=== PATIENT | male | born 1985 | race Caucasian/White ===

== ENCOUNTER 2019-03-16 10:13 | Emergency (ER) | payer SELFPAY ==
--- NOTE | 2019-03-16 10:24 | UC ---
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 he states he is not used to hard labor, and states that after a few hours he started to feel dizzy, tightness in his chest with deep breathing - felt like it was difficult to take a deep breath, and nausea - vomited x 1. felt off the rest of the day. drank 3-4 gatorade yesterday and had some chicken noodle soup, but tightness in chest has remained. pt also has sensation of swelling in his neck, though able to swallow easily and talk easily. no pain at rest, tightness is mostly with activity. pt has possible hx of asthma as a child. possibly has some environmental allergies Yesterday - see above did not urinate until he got home last evening. Urine today clear, no kidney pain no palpitations. No pain in chest now No sob No GI issues now, but did vomit x 1 yesterday. No rash. No vis / aud issues. No h/a now. + sore throat Did have mononucleosis as a child. s/p t/a remote - History of Current Complaint Stated Complaint: CHEST TIGHTNESS, AND NECK TIGHTNESS Time Seen by Provider: 03/16/19 10:23 Hx Obtained From: Patient, Family/Securities Supervisor - Allergy/Home Medications Allergies/Adverse Reactions: Allergies Allergy/AdvReac Type Severity Reaction Status Date / Time No Known Allergies Allergy Verified 03/16/19 10:33 PMH/Surg Hx/FS Hx/Imm Hx Previously Healthy: Yes - Surgical History Surgical History: Yes Surgery Procedure, Year, and Place: shoulder surgery x2. tonsils adenoids wisdom teeth - Social History Alcohol Use: Occasionally Substance Use Type: None Smoking Status (MU): Current Some Day Smoker Type: Cigarettes Amount Used/How Often: occas - 1-2 week Review of Systems All Other Systems Reviewed And Are Negative: Yes Constitutional: Positive: Fatigue - see hpi Skin: Positive: Other - see hpi Eyes: Positive: Other - see hpi ENT: Positive: Other - see hpi Respiratory: Positive: Other - see hpi Cardiovascular: Positive: Other - see hpi Gastrointestinal: Positive: Other - see hpi Genitourinary: Positive: Other - see hpi Motor: Positive: Other - see hpi Neurovascular: Positive: Other - see hpi Musculoskeletal: Positive: Other: - see hpi Neurological: Positive: Other - see hpi Is Patient Immunocompromised?: No Physical Exam Triage Information Reviewed: Yes Appearance: Well-Nourished - sitting up / laying back on exam stretcher NAD. Conversing easily. Looks tired, but NAD. Vital Signs Reviewed: Yes Eye Exam: Normal - grossly normal ENT: Positive: Pharyngeal erythema - post pharynx redness, neck supple. no meningismus Neck: Positive: Supple Respiratory Exam: Normal Respiratory: Positive: Chest non-tender, Lungs clear, Normal breath sounds, No respiratory distress, No accessory muscle use Cardiovascular Exam: Other - + syst murmur mild Cardiovascular: Positive: RRR, Pulses Normal, Brisk Capillary Refill Abdominal Exam: Normal Abdomen Description: Positive: Nontender Musculoskeletal Exam: Normal - gait steady, moves x 4 ext's Neurological Exam: Normal Psychological Exam: Normal Skin Exam: Normal Course/Dx - Course Course Of Treatment: EKG -SR at 63 bpm. PA 176 QTC 445. Likely early repol. Considered asa, but no current pain, and concern renal issues / volume depl. asa can be administered in ED if necessary. Will go immediately to ED D/w pt and girlfriend. Highly recommend ED evaluation / management. They carefully considered this and will go to ED. Decline EMS. Called ED, d/w JUDITH Meyer 10:55am Questions as posed answered to the best of my ability. - Diagnoses Provider Diagnosis: Chest pain, Heat exhaustion, Sore throat Discharge - Sign-Out/Discharge Documenting (check all that apply): Patient Departure All imaging exams completed and their final reports reviewed: No Studies - Discharge Plan Condition: Guarded Disposition: HOME-RECOMMEND TO ED Patient Education Materials: Chest Pain (ED) Referrals: No Primary Care Phys,NOPCP [Primary Care Provider] - Additional Instructions: Please go directly to the Emergency Department. Stop and call 911 en route, if any problems. - Billing Disposition and Condition Condition: GUARDED Disposition: Home-Recommend to ED
[2019-03-16 11:10] VITALS: BP 127/83
== END 2019-03-16 11:06 | disposition home health service (06) ==
LOC: UCEAST 10:13
DX: R07.9 Chest pain, unspecified (principal); J02.9 Acute pharyngitis, unspecified; T67.5XXA Heat exhaustion, unspecified, initial encounter; X30.XXXA Exposure to excessive natural heat, initial encounter; Y93.89 Activity, other specified; Y92.89 Other specified places as the place of occurrence of the external cause; Y99.0 Civilian activity done for income or pay; F17.210 Nicotine dependence, cigarettes, uncomplicated
CPT/HCPCS: 93005; 99202; G0463

== ENCOUNTER 2019-03-16 11:24 | Emergency (ER) | payer SELFPAY ==
[2019-03-16] MEDS ORDERED: NS 0.9% 1000 ML** 1,000 ML IV ONE (11:34)
--- NOTE | 2019-03-16 11:49 | ED ---
HPI Chest Pain - HPI Summary HPI Summary: The patient is a 33 y/o M presenting to [facility] with a chief complaint of sudden onset diffuse chest soreness with bilateral neck myalgia starting yesterday. 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 He also felt dehydrated at the time, so after working, he went home and tried to hydrate himself but woke up this morning with the same symptoms. Currently, his pain is rated 3/10 in severity. He additionally c/o diaphoresis, nausea without vomiting, and slight dizziness. He denies SOB, diarrhea, and constipation. No past medical hx. Surgical hx of shoulder procedure and T&A. FHx of DM and HTN. Currently vapes with previous cigarette use, rare EtOH, marijuana use. - History of Current Complaint Chief Complaint: EDChestPainROMI Time Seen by Provider: 03/16/19 11:27 Hx Obtained From: Patient Onset/Duration: Started Hours Ago - yesterday, Still Present Timing: Lasting Hours Initial Severity: Mild Current Severity: Moderate Pain Intensity: 3 Pain Scale Used: 0-10 Numeric Chest Pain Location: Diffuse Chest Pain Radiates: No Character: Other: - soreness Aggravating Factor(s): Nothing Alleviating Factor(s): Nothing Associated Signs and Symptoms: Positive: Dizziness, Diaphoresis, Nausea, Other: - POSITIVE: dehydration, bilateral neck myalgia; NEGATIVE: diarrhea, constipation. Negative: Shortness of Breath, Vomiting - Allergy/Home Medications Allergies/Adverse Reactions: Allergies Allergy/AdvReac Type Severity Reaction Status Date / Time No Known Allergies Allergy Verified 03/16/19 11:26 PMH/Surg Hx/FS Hx/Imm Hx Endocrine/Hematology History: Denies: Hx Diabetes Cardiovascular History: Denies: Hx Hypercholesterolemia, Hx Hypertension Respiratory History: Reports: Hx Asthma - as a child - Surgical History Surgery Procedure, Year, and Place: shoulder surgery x2. tonsils adenoids wisdom teeth Infectious Disease History: No Infectious Disease History: Denies: History Other Infectious Disease, Traveled Outside the [place] in Last 30 Days - Family History Known Family History: Positive: Hypertension, Diabetes - Social History Alcohol Use: Occasionally Hx Substance Use: No Substance Use Type: Reports: None Hx Tobacco Use: Yes Smoking Status (MU): Current Some Day Smoker Type: Cigarettes, eCigarettes Amount Used/How Often: occas - 1-2 week Length of Time of Smoking/Using Tobacco: 10 years for cigarettes, currently vapes Review of Systems Positive: Skin Diaphoresis, Other - dehydrated Positive: Chest Pain - diffuse soreness Negative: Shortness Of Breath Positive: Nausea, Other - NEGATIVE: constipation. Negative: Vomiting, Diarrhea Positive: Myalgia - bilateral neck pain Neurological: Other - slight dizziness All Other Systems Reviewed And Are Negative: Yes Physical Exam - Summary Physical Exam Summary: VITAL SIGNS: Reviewed. GENERAL: Patient is a well-developed and nourished male who is lying comfortable in the stretcher. Patient is not in any acute respiratory distress. HEAD AND FACE: No signs of trauma. No ecchymosis, hematomas or skull depressions. No sinus tenderness. EYES: PERRLA, EOMI x 2, No injected conjunctiva, no nystagmus. EARS: Hearing grossly intact. Ear canals and tympanic membranes are within normal limits. MOUTH: Dry oral mucosa but oropharynx is otherwise within normal limits. NECK: Supple, trachea is midline, no adenopathy, no JVD, no carotid bruit, no c- spine tenderness, neck with full ROM. CHEST: Symmetric, no tenderness at palpation LUNGS: Clear to auscultation bilaterally. No wheezing or crackles. CVS: Regular rate and rhythm, S1 and S2 present, no murmurs or gallops appreciated. ABDOMEN: Soft, non-tender. No signs of distention. No rebound, no guarding, and no masses palpated. Bowel sounds are normal. EXTREMITIES: FROM in all major joints, no edema, no cyanosis or clubbing. NEURO: Alert and oriented x 3. No acute neurological deficits. Speech is normal and follows commands. SKIN: Dry and warm. Triage Information Reviewed: Yes Vital Signs On Initial Exam: Initial Vitals Temp Pulse Resp BP Pulse Ox 99 F 62 18 155/83 100 03/16/19 11:26 03/16/19 11:26 03/16/19 11:26 03/16/19 11:26 03/16/19 11:26 Vital Signs Reviewed: Yes Diagnostics - Vital Signs Vital Signs Temp Pulse Resp BP Pulse Ox 03/16/19 11:26 99 F 62 18 155/83 100 - Laboratory Result Diagrams: 03/16/19 12:04 07/04/19 12:04 Lab Statement: Any lab studies that have been ordered have been reviewed, and results considered in the medical decision making process. - Radiology CXR Radiology Interpretation Completed By: Radiologist Summary of Radiographic Findings: No active cardiopulmonary disease. ED physician has reviewed this report. - EKG 1127 Cardiac Rate: NL - 71 BPM EKG Rhythm: Sinus Rhythm Summary of EKG Findings: Nml axis. No ST elevations. Re-Evaluation - Re-Evaluation First Eval Re-Evaluation Time: 12:55 Comment: I discussed findings with the patient and the recommendation for admission. Second Eval Re-Evaluation Time: 13:55 Comment: The patient would like to sign-out AMA after speaking with Dr. Gutiérrez. Chest Pain Course/Dx - Course Assessment/Plan: The patient is a 33 y/o M presenting to [facility] with a chief complaint of sudden onset diffuse chest soreness with bilateral neck myalgia starting yesterday. 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 He also felt dehydrated at the time, so after working, he went home and tried to hydrate himself but woke up this morning with the same symptoms. Currently, his pain is rated 3/10 in severity. He additionally c/o diaphoresis, nausea without vomiting, and slight dizziness. He denies SOB, diarrhea, and constipation. No past medical hx. Surgical hx of shoulder procedure and T&A. FHx of DM and HTN. Currently vapes with previous cigarette use, rare EtOH, marijuana use. No significant past medical history or surgical history. EKG shows a sinus rhythm at [address] elevations. In the ED course, the patient was placed on a satellite project site monitor, IV access was obtained, and IV fluids were started. Patient was given aspirin for chest pain. Blood test results without any significant abnormality except for sodium of 134, chloride of 100, CPK of 448, and troponin of 0.05.At this point I discussed my physical exam and findings with Dr. Gutiérrez from the hospitalist services who accepted the patient for further workup and management. After Dr. Gutiérrez was going to admit the patient, the patient declined admission. The patient signed AGAINST MEDICAL ADVICE. I extensively discussed with the patient the benefits and risk of leaving AMA. I also discussed the alternatives to leaving AMA, however, the patient still insists to leave the hospital AMA. The patient is clinically sober, free from distracting injury, appears to have intact insight and judgment and reason and, in my opinion, has the capacity to make decisions. Patient has full capacity and is cognitively intact. The patient presents with chest pain, I have explained that I am concerned with ACS and may represent CT. The patient verbalizes understanding of my concerns. I have also explained the results of the labs and even though they are abnormal. The primary nurse and the charge nurse also strongly recommended that the patient should not leave AMA. Patient understands the risk of leaving AMA, which includes but is not restricted to . Patient signed the AMA form. Patient was also advised to return to ED if he changes his mind or if the symptoms worsen or other symptoms appear. Patient understands and agrees. Again, I discussed all the findings and test results with the patient. Patient was instructed to return to the emergency room immediately if any of the symptoms return or worsen. Plan of care was discussed with the patient and understands and agrees. All questions were answered at patient satisfaction. There were no further complaints or concerns. Patient signed AMA and he was discharged AMA. - Diagnoses Provider Diagnoses: Chest pain, Elevated troponin - Provider Notifications Discussed Care Of Patient With: Renetta Gutiérrez - hospitalist Time Discussed With Above Provider: 12:49 Instructed by Provider To: Other - I discussed the patient's case with Dr. Gutiérrez, and she accepts the patient for admission. At 1350, Dr. Gutiérrez reports that the patient would like to decline admission and sign-out AMA. At 1400, she recommends Motrin and hydration as the pain seems muscular. Discharge - Sign-Out/Discharge Documenting (check all that apply): Patient Departure - Patient will sign out AMA. Patient Received Moderate/Deep Sedation with Procedure: No - Discharge Plan Condition: Stable Disposition: AGAINST MEDICAL ADVICE Patient Education Materials: Chest Pain (DC) Referrals: Renetta Gutiérrez DO [Doctor of Osteopathy] - 3 Days Additional Instructions: Follow up with Dr. Gutiérrez in 2-3 days. RETURN TO THE EMERGENCY DEPARTMENT FOR ANY NEW OR WORSENING SYMPTOMS. - Billing Disposition and Condition Condition: STABLE Disposition: Against Medical Advice - Attestation Statements Document Initiated by Scribe: Yes Documenting Scribe: Maggie Cornelius Provider For Whom Scribe is Documenting (Include Credential): Dr. Surya Matias MD Scribe Attestation: I, Maggie Cornelius, scribed for Dr. Surya Matias MD on 03/16/19 at 1408. Scribe Documentation Reviewed: Yes Provider Attestation: The documentation as recorded by the Maggie buenrostro accurately reflects the service I personally performed and the decisions made by me, Dr. Surya Matias MD Status of Scribe Document: Ready
[2019-03-16 12:12] LABS: ABS Basophils 0.1 10^3/ul (0-0.2); ABS Eosinophils 0.1 10^3/ul (0-0.6); ABS Lymphocytes 2.5 10^3/ul (1.0-4.8); ABS Monocytes 1.1 10^3/ul (0-0.8); ABS Neutrophils 4.5 10^3/ul (1.5-7.7); Eosinophil % 1.6 %; Hematocrit 41 % (42-52); Hemoglobin 14.4 g/dL (14.0-18.0); Lymphocyte % 29.7 %; Mean Corpuscular HGB Conc 35 g/dL (31-36); Mean Corpuscular Hemoglobin 32 pg (27-31); Mean Corpuscular Volume 92 fL (80-94); Mean Platelet Volume 8.2 fL (7.4-10.4); Nucleated Red Blood Cells % 0.1; Platelet Count 208 10^3/uL (150-450); Red Blood Count 4.46 10^6 /uL (4.18-5.48); Red Cell Distribution Width 12 % (10-15); White Blood Count 8.3 10^3/uL (3.5-10.8)
[2019-03-16 12:28] LABS: ALT 14 U/L (7-52); AST 24 U/L (13-39); Alkaline Phosphatase 70 U/L (34-104); Anion Gap 10 mmol/L (2-11); BUN/Creatinine Ratio 17.8 (8-20); Blood Urea Nitrogen 16 mg/dL (6-24); CO2 Carbon Dioxide 24 mmol/L (22-32); Calcium 9.4 mg/dL (8.6-10.3); Chloride 100 mmol/L (101-111); Creatine Kinase 548 U/L (10-223); EGFR African American 118.3 (>60); EGFR Non-African American 97.8 (>60); Globulin 2.5 g/dL (2-4); Glucose 100 mg/dL (70-100); Magnesium 2.1 mg/dL (1.9-2.7); Potassium 3.5 mmol/L (3.5-5.0); Sodium 134 mmol/L (135-145); Total Protein 7.5 g/dL (6.4-8.9)
[2019-03-16 12:33] LABS: CKMB ng/mL 3.3 ng/mL (0.6-6.3)
[2019-03-16 12:35] LABS: Troponin I 0.05 ng/mL (<0.04)
[2019-03-16] MEDS ORDERED: Aspirin 81 mg CHEW TAB* 81 MG TAB.CHEW PO ONE (12:40)
[2019-03-16 13:32] LABS: TSH (Thyroid Stimulating Horm) 1.77 mcIU/mL (0.34-5.60)
[2019-03-16] MEDS ORDERED: Nitroglycerin TAB 0.4 MG* 0.4 MG TAB SL ONE (13:48)
[2019-03-16 14:27] VITALS: BP 131/81
--- NOTE | 2019-03-16 15:53 | CONS ---
CONSULTATION REPORT: DATE OF CONSULT: 03/16/19 TIME OF CONSULT: 2:00 p.m. REQUESTING SERVICE: Emergency Department. CHIEF COMPLAINT: Chest pain. 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 After he went to work, he began feeling unwell. He started doing the job early in the morning and by 10:30 a.m., he was feeling chest pain , dyspnea on exertion, and had trouble cooling down. It was a particularly hot day, and he was trying to stay hydrated and used the hose to cool down as much as he could, but felt exhausted and overheated and vomited around 11 a.m. He continued to work, but continued to experience lower chest discomfort that got worse when he took a deep breath and worse when he exerted himself and got better when he rested. He went home and was able to fall asleep and slept through the night, but then when he woke up this morning, he still had the chest pain in the center of his chest that got worse with deep breath, worse with exertion, and worse when he exerted himself. He describes it as a tightness with deep breath and associated with a little more nausea this morning and some palpitations. 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 He is, however, able to go out on the weekends and restart bikes without any difficulty. PAST MEDICAL HISTORY: None. HOME MEDICATIONS: None. ALLERGIES: None. FAMILY HISTORY: His dad had an ablation for Afib. His grandmother has diabetes. He has no family history of sudden cardiac . No family history of cardiac at a young age, and no family history of coronary artery disease. SOCIAL HISTORY: He works in construction. He does not smoke cigarettes, but does use a nicotine vape. He uses no alcohol and uses marijuana occasionally. REVIEW OF SYSTEMS: He denies syncope, weight loss, weight gain, sore throat, diarrhea, constipation, fevers, but he does admit to chest pain, shortness of breath, palpitations, nausea, diaphoresis. Remainder of the 14-point review of systems is negative. PHYSICAL EXAM: Temperature 99 degrees, heart rate 72, respiratory rate 18, pulse ox 99% on room air, blood pressure 129/82. General: Alert, well- appearing young man, in no distress. His partner is at the bedside. HEENT: Pupils equal, round, reactive to light. Oral mucosa is moist. Posterior oropharynx is unremarkable with surgically absent tonsils. Neck: No JVP. No adenopathy. Chest: He is in a regular, rate and rhythm. No rubs are appreciated. Lungs are clear bilaterally. Abdomen: Soft, nontender, nondistended. Pain has not reproduced the palpation of the abdomen or the chest. Extremities: No edema, rashes, or ulcers. DIAGNOSTIC STUDIES/LAB DATA: White blood cells 8.3, hemoglobin 14.4, platelets 208. Sodium 134, potassium 3.5, chloride 100, bicarb 24, BUN 16, creatinine 0.90, glucose 100. Lactic acid 0.9. Total CK 548, CK-MB 3.3, troponin 0.05, BNP 21. TSH 1.77. Chest x-ray: No active cardiopulmonary disease. This is the radiologist's read. EKG: Normal sinus rhythm. Normal axis. Normal intervals. ST elevation across the precordium with morphology suggestive of early repol pattern. No T- wave changes. ASSESSMENT AND PLAN: This is a 33-year-old man with no past medical history, who presents to the emergency department 1 day after starting a new job that includes physical labor with chest pain, shortness of breath, and diaphoresis and was found to have an elevated troponin. Elevated troponin: I have discussed the finding with him and his partner and recommended observation, admission for serial troponin monitoring, serial EKGs, and stress test tomorrow morning on the treadmill. His EVELIA score is 2. While he does not have significant personal risk factors or family risk factors, he does have components of the story that are suggestive of typical chest pain and I recommended further cardiac workup to him and his partner; however, he has decided to leave against medical advice and has declined this recommendation. I have explained to him the risks of not pursuing further workup including heart attack, heart failure, fatal arrhythmias, and , and he understands these. I will therefore order an outpatient stress test, and Dr. Matias will give him the number to my office and he is to call tomorrow for a followup appointment. [id number]/[facility] #: [id number] KHOI
== END 2019-03-16 14:36 | disposition left against medical advice (07) ==
LOC: ED 11:24
DX: R07.89 Other chest pain (principal); R79.89 Other specified abnormal findings of blood chemistry; R61 Generalized hyperhidrosis; R11.0 Nausea; M54.2 Cervicalgia; M79.10 Myalgia, unspecified site; E86.0 Dehydration; Z82.49 Family history of ischemic heart disease and other diseases of the circulatory system; Z83.3 Family history of diabetes mellitus; Z72.0 Tobacco use
CPT/HCPCS: 36415; 71045; 80053; 82550; 82553; 83605; 83735; 83880; 84443; 84484; 85025; 93005; 96360; 99284; A9270-GY